=== PATIENT | male | born 1995 | race Caucasian/White ===

== ENCOUNTER 2017-12-05 14:09 | Emergency (ER) | payer OTHER ==
[2017-12-05] MEDS ORDERED: ONDANSETRON 4 MG/2 ML VIAL IVP ONE (14:32)
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
[2017-12-05] MEDS ORDERED: LET GEL TOPICAL 1 EA SYR TP ONE (15:44)
[2017-12-05] MEDS ORDERED: OXYCODONE/APAP 5/325 TAB PO ONE (17:09)
[2017-12-05] MEDS ORDERED: OXYCODONE/APAP 5/325 TAB ONE (17:10)
[2017-12-05 17:26] VITALS: BP 154/100
== END 2017-12-05 17:25 | disposition home or self-care (01) ==
DX: S42.111A Displaced fracture of body of scapula, right shoulder, initial encounter for closed fracture (principal); S09.90XA Unspecified injury of head, initial encounter; S27.321A Contusion of lung, unilateral, initial encounter; S40.211A Abrasion of right shoulder, initial encounter; S50.311A Abrasion of right elbow, initial encounter; S50.811A Abrasion of right forearm, initial encounter; S00.31XA Abrasion of nose, initial encounter; V17.4XXA Pedal cycle driver injured in collision with fixed or stationary object in traffic accident, initial encounter; Y92.828 Other wilderness area as the place of occurrence of the external cause; Y99.8 Other external cause status; Y93.55 Activity, bike riding
CPT/HCPCS: 96374; A4565; J2270; J2405